=== PATIENT | female | born 1955 | race Caucasian/White ===

== ENCOUNTER 2020-06-02 18:52 | Emergency (ER) | payer MEDICARE, MEDICAID ==
[~2020-06-02] VITALS: Ht 154.9 cm; Wt 46.3 kg
[~2020-06-02 18:52] MED LIST: LIDOcaine 1% W/epiNEPHrine 1:200,000 10ml vial ONE
[2020-06-02] MEDS ORDERED: HYDROcodone/acetaminophen 5mg/325mg tablet PO ONE (22:35)
[2020-06-02] MEDS ORDERED: CEPH250T PO (22:36)
[2020-06-02 22:55] VITALS: BP 143/71
== END 2020-06-02 22:57 | disposition home or self-care (01) ==
LOC: ER 18:53
DX: M79.5 Residual foreign body in soft tissue (principal); M79.671 Pain in right foot; Z79.2 Long term (current) use of antibiotics
CPT/HCPCS: 10120; 99284; 99285

== ENCOUNTER 2020-06-18 12:58 | Emergency (ER) | payer MEDICARE, MEDICAID ==
[~2020-06-18] VITALS: Ht 154.9 cm; Wt 47.7 kg
--- NOTE | 2020-06-18 13:42 | NUR ---
MARY (FOR [facility] [place]) [phone]
[2020-06-18] MEDS ORDERED: morphine 4 MG/ML inj SYRINge IV PRN (13:50)
[2020-06-18] MEDS ORDERED: normal saline 1000ML IV soln IVB ONE ×2 (13:50→15:15)
[2020-06-18] MEDS ORDERED: ondansetron/PF 4mg/2ml inj IV ONE ×2 (13:50→15:15)
[2020-06-18 14:37] LABS: EOSINOPHILS % (AUTO) 0.4 % (0-6); HEMATOCRIT 40.5 % (35.0-45.0); LYMPHOCYTES # (AUTO) 0.9 X10'3 (1.1-4.8); LYMPHOCYTES % (AUTO) 30.4 % (21-51); MEAN CORPUSCULAR HEMOGLOBIN 35.4 PG (27.0-31.0); MEAN CORPUSCULAR HGB CONC 34.6 g/dL (33.0-36.5); MEAN CORPUSCULAR VOLUME 102.4 FL (78-98); MEAN PLATELET VOLUME 7.9 FL (7.4-10.4); MONOCYTES # (AUTO) 0.3 X10'3 (0-0.9); MONOCYTES % (AUTO) 10.4 % (2-12); NEUTROPHILS # (AUTO) 1.7 X10'3 (1.8-7.7); NEUTROPHILS % (AUTO) 57.8 % (42-75); PLATELET COUNT 293 X10'3 (140-440); RED BLOOD COUNT 3.96 X10'6 (4.20-5.60); RED CELL DISTRIBUTION WIDTH 13.7 % (11.5-14.5)
[2020-06-18 14:49] LABS: ALANINE AMINOTRANSFERASE 17 U/L (12-78); ALBUMIN 3.7 G/DL (3.4-5.0); ALBUMIN/GLOBULIN RATIO 0.9 (1.1-1.5); ALKALINE PHOSPHATASE 78 IU/L (46-116); ANION GAP 6 (8-16); ASPARTATE AMINO TRANSFERASE 21 U/L (10-37); BILIRUBIN,TOTAL 0.3 MG/DL (0.1-1.0); BLOOD UREA NITROGEN 20 MG/DL (7-18); BUN/CREATININE RATIO 20.6 (6.6-38.0); CALCIUM 9.2 MG/DL (8.5-10.1); CHLORIDE 100 MMOL/L (99-107); CREATININE 0.97 MG/DL (0.40-0.90); GLUCOSE 97 MG/DL (70-104); LIPASE 81 U/L (73-393); POTASSIUM 3.5 MMOL/L (3.5-5.1); SODIUM 136 MMOL/L (135-145); TOTAL CARBON DIOXIDE 30.5 MMOL/L (24-32); eGFR 58 ML/MIN
[2020-06-18 14:59] LABS: PLATELET ESTIMATE NORMAL; TOTAL CELLS COUNTED 100
[2020-06-18] MEDS ORDERED: ONDA4TAB6 PO (16:21)
[2020-06-18 16:51] LABS: CLARITY,URINE SLIGHTLY CLOUDY (Clear); COLOR,URINE YELLOW (Yellow); GLUCOSE, URINE NEGATIVE (Neg); KETONES,URINE 15 mg/dl (Neg); LEUKOCYTE ESTERASE ,URINE MODERATE (Neg); NITRITES, URINE NEGATIVE (Neg); OCCULT BLOOD,URINE SMALL (Neg); PROTEIN,URINE NEGATIVE (Neg)
[2020-06-18 16:53] LABS: UA COLLECTION TYPE CLN CATCH MIDSTREAM
[2020-06-18 17:01] LABS: MUCUS STRANDS FEW /LPF (Neg); SQUAMOUS EPITHELIAL CELL,UR MANY /LPF (FEW)
[2020-06-18 17:02] LABS: TRANSITIONAL EPI CELLS,URINE FEW /HPF; WBC,URINE 20-30 /HPF (0-4)
[2020-06-18 17:03] LABS: BACTERIA,URINE 1+ /HPF (Neg); RBC,URINE 0-2 /HPF (0-2)
[2020-06-18 17:23] VITALS: BP 144/90
== END 2020-06-18 17:25 | disposition home or self-care (01) ==
LOC: ER 12:58
DX: K52.9 Noninfective gastroenteritis and colitis, unspecified (principal); R59.9 Enlarged lymph nodes, unspecified; N20.0 Calculus of kidney; D53.9 Nutritional anemia, unspecified; R19.7 Diarrhea, unspecified; M54.9 Dorsalgia, unspecified; Z88.8 Allergy status to other drugs, medicaments and biological substances; Z79.899 Other long term (current) drug therapy
CPT/HCPCS: 36415; 74176; 80053; 81001; 83690; 85007; 85025; 96361; 96374; 96375; 99284; J2270; J2405; J7030

== ENCOUNTER 2021-02-09 14:20 | Emergency (ER) | payer MEDICARE, MEDICAID ==
[~2021-02-09] VITALS: Ht 154.9 cm; Wt 46.8 kg
[~2021-02-09 14:20] MED LIST changes: -LIDOcaine 1% W/epiNEPHrine 1:200,000 10ml vial ONE; +ONDA4TAB6 PO
[2021-02-09 15:02] VITALS: BP 165/96
[2021-02-09] MEDS ORDERED: HYDR-3965 PO (15:39)
[2021-02-09] MEDS ORDERED: HYDROcodone/acetaminophen 10/325mg tab PO ONE (15:40)
== END 2021-02-09 15:50 | disposition home or self-care (01) ==
LOC: ER 14:21
DX: S42.292A Other displaced fracture of upper end of left humerus, initial encounter for closed fracture (principal); S40.012A Contusion of left shoulder, initial encounter; F17.200 Nicotine dependence, unspecified, uncomplicated; Z88.8 Allergy status to other drugs, medicaments and biological substances; Z79.899 Other long term (current) drug therapy; W18.39XA Other fall on same level, initial encounter; Y93.89 Activity, other specified; Y92.89 Other specified places as the place of occurrence of the external cause; Y99.8 Other external cause status
CPT/HCPCS: 73090; 73110; 99284

== ENCOUNTER 2022-11-04 18:09 | Emergency (ER) | payer MEDICARE, MEDICAID ==
[~2022-11-04] VITALS: Ht 154.9 cm; Wt 50.0 kg
[2022-11-04] MEDS ORDERED: normal saline 1000ML IV soln IVB ONE (22:35)
[2022-11-04] MEDS ORDERED: acetaminophen 325mg tablet PO ONE (22:35)
[2022-11-04] MEDS ORDERED: ketorolac tromethamine 15mg/ml inj. IV ONE (22:40)
[2022-11-04 23:13] LABS: BASOPHILS # (AUTO) 0.1 X10'3 (0-0.2); BASOPHILS % (AUTO) 1.1 % (0-1); EOSINOPHILS # (AUTO) 0.1 X10'3 (0-0.9); EOSINOPHILS % (AUTO) 2.4 % (0-6); HEMATOCRIT 33.1 % (35.0-45.0); HEMOGLOBIN 11.1 g/dl (12.0-16.0); LYMPHOCYTES # (AUTO) 1.5 X10'3 (1.1-4.8); LYMPHOCYTES % (AUTO) 28.4 % (21-51); MEAN CORPUSCULAR HEMOGLOBIN 34.6 PG (27.0-31.0); MEAN CORPUSCULAR HGB CONC 33.6 g/dL (33.0-36.5); MEAN CORPUSCULAR VOLUME 103.1 FL (78-98); MEAN PLATELET VOLUME 7.3 FL (7.4-10.4); MONOCYTES # (AUTO) 0.4 X10'3 (0-0.9); MONOCYTES % (AUTO) 8.5 % (2-12); NEUTROPHILS # (AUTO) 3.1 X10'3 (1.8-7.7); NEUTROPHILS % (AUTO) 59.6 % (42-75); PLATELET COUNT 336 X10'3 (140-440); RED BLOOD COUNT 3.21 X10'6 (4.20-5.60); RED CELL DISTRIBUTION WIDTH 13.6 % (11.5-14.5); WHITE BLOOD COUNT 5.2 X10'3 (4.5-11.0)
[2022-11-04 23:17] LABS: D-DIMER 0.52 MG/L FEU (0-0.50)
[2022-11-04 23:23] LABS: ALANINE AMINOTRANSFERASE 15 U/L (12-78); ALBUMIN 3.6 G/DL (3.4-5.0); ALBUMIN/GLOBULIN RATIO 1.1 (1.1-1.5); ALKALINE PHOSPHATASE 87 IU/L (46-116); ANION GAP 7 (8-16); ASPARTATE AMINO TRANSFERASE 11 U/L (10-37); BILIRUBIN,TOTAL 0.2 MG/DL (0.1-1.0); BLOOD UREA NITROGEN 13 MG/DL (7-18); BUN/CREATININE RATIO 18.1 (6.6-38.0); CALCIUM 8.9 MG/DL (8.5-10.1); CHLORIDE 104 MMOL/L (99-107); CREATININE 0.72 MG/DL (0.40-0.90); GLUCOSE 108 MG/DL (70-104); POTASSIUM 3.3 MMOL/L (3.5-5.1); SODIUM 141 MMOL/L (135-145); TOTAL CARBON DIOXIDE 29.7 MMOL/L (24-32); eGFR 81 ML/MIN
[2022-11-05] MEDS ORDERED: iohexol 350MG/ML 100ml bottle IV ONE (00:12)
[2022-11-05 01:58] VITALS: BP 151/80
--- NOTE | 2022-11-05 03:00 | NUR ---
Patient requests IV removal. Patient states she wants to leave. Patient advised we are still pending CT results, patient declines to wait. patient signed AMA form and departs with friend. Patient advised she can return for any new or worsening symptoms, or for any other concern. patient verbalizes understanding. Patient ambulatory from ER. IV sites removed.
[2022-11-05 07:17] LABS: OCCULT BLOOD STOOL NEGATIVE (Neg)
== END 2022-11-05 03:04 | disposition left against medical advice (07) ==
LOC: VAS 18:09 → ER 11-05 03:04
DX: R07.9 Chest pain, unspecified (principal); R10.9 Unspecified abdominal pain; R06.02 Shortness of breath; R05.9 Cough, unspecified; R07.81 Pleurodynia; Z88.1 Allergy status to other antibiotic agents; Z79.899 Other long term (current) drug therapy
CPT/HCPCS: 36415; 71046; 71275; 76700; 80053; 82272; 85025; 85379; 93005; 96361; 96374; 99285; J1885; J3490; J7030; Q9967

== ENCOUNTER 2025-03-24 16:05 | Emergency (ER) | payer BC, MEDICAID ==
[~2025-03-24] VITALS: Ht 154.9 cm; Wt 51.4 kg
[2025-03-24 16:13] VITALS: BP 152/80; PULSE 91; TEMP 97.4; O2SAT 99
--- NOTE | 2025-03-24 16:14 | ELECTROCARDIOGRAPH REPORT ---
[facility] Test Date: 2025-03-24 Test Time: 16:12:48 Pat Name: ANEUDY DELGADILLO Department: EMERGENCY ROOM Room: Gender: F Senior Policy Advisor: ADAMS : 1955 Requested By: PEDRO CUBA Order Number: [id number] Reading MD: Measurements Intervals [place] Rate: 88 P: 72 IL: 123 QRS: 58 QRSD: 116 T: 20 QT: 373 QTc: 452 Interpretive Statements Sinus rhythm Nonspecific intraventricular conduction delay Please click the below link to view image of tracing.
--- NOTE | 2025-03-24 16:19 | Physician Documentation ---
History of Present Illness ~ Chief Complaint: Chest Pain Stated Complaint: CHEST PAIN Time Seen by MD: 16:22 OK to notify your PCP?: Yes Source: patient Mode of Arrival: POV Exam Limitations: no limitations HPI 69-year-old female presents with severe left-sided chest pain which radiates down her left arm for the past 2 hours with shortness of breath. She has not have any cardiac history but has a strong family history of cardiac events. She has not taken any aspirin prior to arrival. Patient reports that she was outside cleaning some things with water when the pain started. She denies any headache, fainting, nausea, vomiting or any other associated symptoms. Medication Reconciliation Allergies: Coded Allergies: ascorbic acid (Verified Allergy, Unknown, RASH/HIVES, 06/18/20) Scheduled Ondansetron Hcl (Zofran), 1 TAB PO Q6H Past Medical History Past Medical History: No Pertinent History, *MUSCULOSKELETAL* Past Surgical History: no surgical history Other Past Family History: Breast cancer, prostate cancer Alcohol Use: Rarely Drug Use: none, other Lives with: Family Lives In: Home Review of Systems All Other Systems at this time: Reviewed and Negative Physical Exam Vital Signs: RN Vital Signs have been reviewed: Yes, Temperature: 97.4, Source: Temporal, Heart Rate: 91, Respiratory Rate: 15, BP: 152/80, Pulse Oximetry: 99, Weight: 51.350 Pulse Oximetry Reflects: adequate oxygenation Physical Exam General: Alert, no distress. HEENT: No injection, moist mucous membranes. Neck: Full range of motion. Respiratory: No respiratory distress, equal chest rise and fall. Chest: No accessory muscle use. Cardiovascular: Regular rate and rhythm. Gastrointestinal: Nondistended. Extremities: Normal range of motion, no deformity. Neurologic: Oriented x4. Psychiatric: Normal mood and affect. Skin: Normal color, warm and dry. General Appearance I have reviewed the triage vitals. CONST: Well developed and well nourished. In no acute distress HENT: Head Atraumatic EYES: Pupils are equal, round and reactive to light. Normal conjunctiva NECK: Normal range of motion. Supple. CARDIO: Normal rate and regular rhythm. No murmurs, rubs, or gallops. S1, S2. PULM/CHEST: No respiratory distress. Lungs clear to auscultation. No wheeze ABD: Soft and nontender. Nondistended. Bowel sounds normal. No guarding. : Exam deferred MSK: No edema. No deformity. NEURO: Alert and oriented to person, place and time. Moving all extremities SKIN: Warm and dry. PSYCH: Normal mood and affect. Good eye contact. Progress Results/Orders Results/Orders Orders - PEDRO CUBA MD Chest,Single View (03/24/25 16:06) Monitor (03/24/25 16:06) Saline Lock (03/24/25 16:06) Oxygen (03/24/25 16:06) PBNP (03/24/25 16:06) Hs Troponin I W Calculations (03/24/25 18:06) Hs Troponin I W Calculations (03/24/25 19:06) CMP (03/24/25 16:10) Page Hospitalist (03/24/25 17:46) Fill Out Med Reconciliation (03/24/25 17:46) Completed Orders - PEDRO CUBA MD Chest,Single View (03/24/25 16:06) Cbc/Diff (03/24/25 16:06) Electrocardiogram (03/24/25 16:06) Hs Troponin I W Calculations (03/24/25 16:06) Aspirin 325mg Enteric-Coated (Ecotrin 32 (03/24/25 16:40) Nitroglycerin Sublingual Tab (Nitrostat (03/24/25 16:40) Medications Received in ER Medications (Trade) Dose Ordered Sig/[place] PRN Reason Start Time Stop Time Status Last Admin Dose Admin (aspirin 81MG chew tablet) 324 mg ONCE ONCE PO 03/24/25 16:20 03/24/25 16:21 DC 03/24/25 16:59 324 MG (Ecotrin 325MG tablet) 1 tab ONCE ONCE PO 03/24/25 16:40 03/24/25 16:47 DC 03/24/25 16:59 1 TAB (Nitrostat SL tablet) 0.4 mg ONCE ONCE SL 03/24/25 16:40 03/24/25 16:43 DC 03/24/25 16:59 0.4 MG Vital Signs 03/24/25 03/24/25 16:13 16:30 Temp 97.4 Pulse 91 Resp 15 18 B/P (MAP) 152/80 Pulse Ox 99 Laboratory Tests Test 03/24/25 16:10 White Blood Count 6.7 Red Blood Count 4.06 L Hemoglobin 13.9 Hematocrit 41.7 Mean Corpuscular Volume 102.9 H Mean Corpuscular Hemoglobin 34.4 H Mean Corpuscular Hemoglobin Concent 33.4 Red Cell Distribution Width 13.9 Platelet Count 342 Mean Platelet Volume 8.6 Neutrophils (%) (Auto) 69.2 Lymphocytes (%) (Auto) 23.0 Monocytes (%) (Auto) 6.0 Eosinophils (%) (Auto) 1.1 Basophils (%) (Auto) 0.7 Neutrophils # (Auto) 4.6 Lymphocytes # (Auto) 1.5 Monocytes # (Auto) 0.4 Eosinophils # (Auto) 0.1 Basophils # (Auto) 0.0 CBC Comment Sodium Level 141 Potassium Level 3.8 Chloride Level 103 Carbon Dioxide Level 27.8 Anion Gap 10 Blood Urea Nitrogen 15 Creatinine 0.81 Estimated GFR/1.73 m2 71 BUN/Creatinine Ratio 18.5 Glucose Level 135 H Calcium Level 9.4 Total Bilirubin 0.4 Aspartate Amino Transf (AST/SGOT) 15 Alanine Aminotransferase (ALT/SGPT) 21 Alkaline Phosphatase 93 Troponin I High Sensitivity 4 Total Protein 8.4 H Albumin 4.1 Globulin 4.3 Albumin/Globulin Ratio 1.0 L Chemistry Comments EKG/XRAY/CT/US/VASC/MRI EKG : Additional Comment EKG as interpreted by ED MD indicating normal sinus rhythm with a rate of 80 beats per minute, normal axis, no ischemia Chest X-Ray : Additional Comments CHEST RADIOGRAPH Indication: CP Technique: Single frontal view of the chest was obtained COMPARISON: None FINDINGS: Lines and Tubes: None Lungs: Clear Pleura: No effusion. No pneumothorax. Cardiomediastinal contours: Unremarkable Bones: Unremarkable IMPRESSION: No acute disease. Heart Score: Heart Score Response (Comments) Value History Moderate Suspicious 1 EKG Normal 0 Age >65 2 Risk Factors 1 or 2 risk factors 1 Troponin Normal limit 0 Total 4 Medical Decision Making Additional Information 69-year-old female presenting for acute onset chest pain. Her EKG is unremarkable. Her lab workup is grossly unremarkable with a normal troponin as well. Her pain did improve with receiving nitroglycerin sublingual. She was also given 325 mg of p.o. aspirin. She still had some chest pain and we did give her another dose of nitroglycerin which resolved her symptoms. Given that she is 69 and ACS is not yet ruled out she should be admitted for ACS rule out and risk stratification. Departure Disposition: 09 ADMITTED INPATIENT Admission Level of Care: Med/Surg with Tele Impression: Primary Impression: Acute chest pain Condition: Guarded Referrals: NO PRIMARY CARE PROVIDER (PCP) Additional Comment Medical Screen Exam This patient recieved a medical screening examination. After reviewing the individual's medical complaints with presenting symptoms and performing an appropriate physical examination, it was determined that no immediate life- threatening emergency medical condition is present. This individual is also not a women having contractions. Signature Scribe Signature: 1 Attestation: 1 CHIRAG FOX Mar 24, 2025 16:19 PEDRO CUBA MD Mar 24, 2025 16:44
[2025-03-24 16:30] VITALS: RESP 18
--- NOTE | 2025-03-24 16:43 | RADIOLOGY REPORT ---
CHEST RADIOGRAPH Indication: CP Technique: Single frontal view of the chest was obtained COMPARISON: None FINDINGS: Lines and Tubes: None Lungs: Clear Pleura: No effusion. No pneumothorax. Cardiomediastinal contours: Unremarkable Bones: Unremarkable IMPRESSION: No acute disease.
[2025-03-24 16:53] LABS: BASOPHILS % (AUTO) 0.7 % (0-1); EOSINOPHILS # (AUTO) 0.1 X10'3 (0-0.9); EOSINOPHILS % (AUTO) 1.1 % (0-6); HEMATOCRIT 41.7 % (35.0-45.0); HEMOGLOBIN 13.9 g/dl (12.0-16.0); LYMPHOCYTES # (AUTO) 1.5 X10'3 (1.1-4.8); MEAN CORPUSCULAR HEMOGLOBIN 34.4 PG (27.0-31.0); MEAN CORPUSCULAR HGB CONC 33.4 g/dL (33.0-36.5); MEAN CORPUSCULAR VOLUME 102.9 FL (78-98); MEAN PLATELET VOLUME 8.6 FL (7.4-10.4); MONOCYTES # (AUTO) 0.4 X10'3 (0-0.9); NEUTROPHILS # (AUTO) 4.6 X10'3 (1.8-7.7); NEUTROPHILS % (AUTO) 69.2 % (42-75); PLATELET COUNT 342 X10'3 (140-440); RED BLOOD COUNT 4.06 X10'6 (4.20-5.60); RED CELL DISTRIBUTION WIDTH 13.9 % (11.5-14.5); WHITE BLOOD COUNT 6.7 X10'3 (4.5-11.0)
[2025-03-24] MEDS: aspirin 325mg tablet, delayed-release (Ecotrin) PO ONE (16:59)
[2025-03-24] MEDS: aspirin 81mg tab.chew PO ONE (16:59)
[2025-03-24] MEDS: nitroGLYCERIN 0.4mg SUBLingual tab SL ONE (16:59)
[2025-03-24 17:44] LABS: ALANINE AMINOTRANSFERASE 21 U/L (12-78); ALBUMIN 4.1 G/DL (3.4-5.0); ALKALINE PHOSPHATASE 93 IU/L (46-116); ANION GAP 10 (8-16); ASPARTATE AMINO TRANSFERASE 15 U/L (10-37); BILIRUBIN,TOTAL 0.4 MG/DL (0.1-1.0); BLOOD UREA NITROGEN 15 MG/DL (7-18); BUN/CREATININE RATIO 18.5 (10.0-20.0); CALCIUM 9.4 MG/DL (8.5-10.1); CHLORIDE 103 MMOL/L (99-107); CREATININE 0.81 MG/DL (0.40-0.90); GLUCOSE 135 MG/DL (70-104); POTASSIUM 3.8 MMOL/L (3.5-5.1); SODIUM 141 MMOL/L (135-145); TOTAL CARBON DIOXIDE 27.8 MMOL/L (24-32); TOTAL PROTEIN 8.4 G/DL (6.4-8.2); eCRCL 51 ML/MIN; eGFR 71 ML/MIN
[2025-03-24 17:51] LABS: PRO BRAIN NATRIURETIC PEPTIDE 59 PG/ML (0-125)
== END 2025-03-24 18:22 | disposition left against medical advice (07) ==
LOC: ER 16:06
DX: R07.89 Other chest pain (principal); Z88.8 Allergy status to other drugs, medicaments and biological substances; Z79.899 Other long term (current) drug therapy
CPT/HCPCS: 36415; 71045; 80053; 83880; 84484; 85025; 93005; 99285